=== PATIENT | male | born 1950 | race Caucasian/White ===

== ENCOUNTER 2020-08-20 01:47 | Outpatient (CLI) | payer OTHER, SELFPAY ==
--- NOTE | 2020-08-20 | DI.CT_ITS ---
EXAM: CT CHEST WO CLINICAL HISTORY: SCREENING FOR LUNG CA, FORMER SMOKER, Z87.891 TECHNIQUE: Imaging Protocol: Axial computed tomography images with coronal and sagittal reformatted images were created and reviewed low-dose protocol was performed. COMPARISON: No exams were available for comparison FINDINGS: Tracheobronchial tree: Patent where visualized. Mediastinum and Sirisha: No dominant adenopathy or fluid collection. Pulmonary parenchyma: No consolidation or dominant measurable mass. No visible emphysematous or fibro tic changes. Lung Nodules: 3 millimeter perifissural nodule, adjacent to the right minor fissure. 3 millimeter le ft lower lobe nodule. Pleura: No effusion or pneumothorax. Heart: The heart is not dilated. No coronary artery calcifications are seen. Aorta: Thoracic aorta non-dilated.Minimal calcification. Upper abdomen: Cyst versus hemangioma at the dome of the liver. Additional low-density lesion seen inferiorly in the left lobe. Spleen normal size. Bones: Disc osteophytes Soft Tissues: Unremarkable. IMPRESSION: 3 millimeter right perifissural nodule. 3 millimeter left lower lobe nodule. Lung RADS Cat 2 - Benign Appearance / Behavior: Nodules with a very low likelihood of becoming a clin ically active cancer due to size or lack of growth Lung-RADS 1.0 CATEGORIES: Category 0 - Prior chest CT exam(s) being located for comparison. Category 1 - Annual screening in 12 months. No nodules or definitely benign nodules. Category 2 - Annual screening in 12 months. Benign appearance. Nodules with low likelihood of becomin g active cancer. Category 3 - 6-month follow-up. Probably benign. Short-term follow-up suggested. Nodules with low lik elihood of becoming active cancer. Category 4A - 3-month follow-up and CT/PET if >8 mm in size. Suspicious finding. Findings which requi re additional testing. Category 4B - Findings which require additional testing and tissue sampling. Suspicious finding. C Added to Any of the Above - History of prior lung cancer screening. S Added to Any of the Above - Significant unexpected other finding. RADIATION DOSE DELIVERED: 74.78mGy.cm Total DLP 74.78mGy.cm Total DLP DATA REPOSITORY: All CT scans at this facility are submitted to the National Radiology Data Registry (NRDR) Dose Index Registry (DIR) with the [employer] (ACR). RADIATION OPTIMIZATION: All CT scans at this facility use at least one of these dose optimization te chniques: automated exposure control; mA and/or kV adjustment per patient size (includes targeted exa ms where dose is matched to clinical indication); or iterative reconstruction.
== END 2020-08-20 02:07 ==
PROVIDERS: PCP Physician Assistant Medical; Visit Provider Nurse Practitioner Family
DX: Z87.891 Personal history of nicotine dependence (principal); R91.8 Other nonspecific abnormal finding of lung field
CPT/HCPCS: 71250

== ENCOUNTER 2021-07-19 01:49 | Outpatient (CLI) | payer OTHER, SELFPAY ==
[2021-07-19 10:17] LABS: Source Nasal/Nares
[2021-07-19 12:57] LABS: COVID-19 PCR Negative (Negative)
== END 2021-07-19 01:50 | disposition home or self-care (01) ==
LOC: LBO 01:49
PROVIDERS: PCP Physician Assistant Medical; Visit Provider Ophthalmology
DX: Z20.822 Contact with and (suspected) exposure to COVID-19 (principal); Z01.818 Encounter for other preprocedural examination
CPT/HCPCS: 87635

== ENCOUNTER 2021-07-22 06:23 | Day surgery (SDC) | payer OTHER, SELFPAY ==
[2021-07-22 06:43] VITALS: BP 174/89; PULSE 48; RESP 16; TEMP 36.8; O2SAT 98
[2021-07-22] MEDS: Tropicam./Phenyleph. (1/2.5%) 5 ML BTL OD ×3 (06:54→07:05)
--- NOTE | 2021-07-22 07:03 | W.ANESPRE ---
General Info Date of Service Date Performed: 07/22/21 Height: 6 ft Weight: 102.8 kg Body Mass Index (BMI): 30.7 Surgical Procedure: Operation Date: 07/22/21 07:40 Proposed Procedures Side Surgeon p Cataract Extraction with IOL Implant Right Shyam Barton MD Meds Allergies and Home Medications Allergies Allergy/AdvReac Type Severity Reaction Status Date / Time Alcohol in Cough Medication Allergy Unknown Other (See Uncoded 07/19/21 08:30 Comment) Home Medication Medication Instructions Recorded acetaminophen 325 mg PO ONCE 07/18/21 cholecalciferol (vitamin D3) 25 mcg PO DAILY 07/18/21 [Vitamin D3] docusate sodium 200 mg PO DAILY 07/18/21 esomeprazole magnesium 20 mg PO DAILY 07/18/21 [id number]-icw-[id number]-vitC 1 cap PO DAILY 07/18/21 [Glucosamine Complex-MSM] ibuprofen 400 mg PO ONCE 07/18/21 Current Visit Medications: Current Medications Generic Name Dose Route Start Last Admin Trade Name Freq PRN Reason Stop Dose Admin Acetaminophen 1,000 mg 07/22/21 06:00 Acetaminophen 500 Mg Tab PO Q4H PRN PRN Miscellaneous Medication 0 ml 07/22/21 06:00 Prednisolone 1%, Moxifloxacin 0.5%, Nepafenac 0.1% 5ml Btl OD DIRECTED BRIA Miscellaneous Medication 0 ml 07/22/21 06:00 07/22/21 07:00 Tropicam./Phenyleph. (1/2.5%) 5 Ml Btl OD 1 drp DIRECTED BRIA Administration Tetracaine HCl 0 ml 07/22/21 06:00 Tetracaine 0.5% 4 Ml Btl OD DIRECTED BRIA PFSH Active Problems Active Problems: Problem Status Onset Code Cortical cataract of right eye H26.9 Nuclear sclerotic cataract of right eye H25.11 Medical History Medical History Bilateral cataracts Chest skin lesion Exostosis of both external ear canals GERD (gastroesophageal reflux disease) Hepatitis C Meralgia paresthetica of right side Other chronic pain Primary osteoarthritis Surgical History Surgical History H/O colonoscopy Hx of left knee surgery Tobacco Smoking/Tobacco Use Status: Former Tobacco Use Alcohol Alcohol Intake: never Substance Use Substance use: Never Substance use type: does not use Vital Signs and Lab Results Vital Signs Most Recent Vital Signs in EMR: Most Recent Vital Signs Temp Pulse Resp BP Pulse Ox 36.8 C 48 L 16 174/89 H 98 07/22/21 06:43 07/22/21 06:43 07/22/21 06:43 07/22/21 06:43 07/22/21 06:43 Lab Results Blood Type / Crossmatch: No Data to Display Complete Blood Count: No Data to Display Complete Metabolic Panel: No Data to Display Liver Function Panel: No Data to Display Coagulation Panel: No Data to Display Cardiac Panel: No Data to Display Arterial Blood Gas: No Data to Display Venous Blood Gas: No Data to Display Pancreas Panel: No Data to Display Thyroid Panel: No Data to Display Infectious Disease: Coronavirus (COVID-19)(PCR) Negative (Negative) 07/19/21 08:30 07/19/21 Coronavirus 2019 Source Nasal/Nares 07/19/21 08:30 07/19/21 Blood Cultures: No Data to Display Toxicology Panel: No Data to Display Anesthesia Assessment and Plan Anesthesia History Personal History: No History of Anesthesia Complications Family History: No Family History of Anesthesia Complications Exercise Tolerance Exercise Tolerance: Metabolic Equivalents>4 Pertinent Negatives Pertinent Negatives: No Symptoms of GERD, No Major Cardiovascular Symptoms or Complaints, No Major Pulmonary Symptoms or Complaints and No History of CVA/TIA Cardiac & Pulmonary Exam Cardiac Exam: Normal S1/S2 Heart Sounds Pulmonary Exam: Clear Bilateral Breath Sounds Airway Exam Known Difficult Airway: No Mallampati Class: 2 Mouth Opening: Normal (> 3cm) Thyromental Distance: Greater than 3 cm Neck Range of Motion: Full ROM Neck Circumference: Normal Teeth Condition: Normal Dentition ASA Classification ASA Score: ASA 2 Emergency Case?: No NPO Status NPO Status: NPO Clears >2 hours, Solids >8 hours Anesthesia Plan Resuscitation Status: Full Code Anesthesia Technique: MAC Anesthesia Airway Planned: Natural Airway Monitors Used: Standard Monitors
[2021-07-22] MEDS: Tetracaine 0.5% 4 ML BTL OD (07:27)
[2021-07-22] MEDS: Povidone-Iodine Ophth 30 ML BTL (07:28)
[2021-07-22] MEDS: Lidocaine 2% Jelly 6 ML SYR (07:28)
[2021-07-22 07:31] VITALS: BMI 30.7
[2021-07-22] MEDS: Balanced Salt Soln.-PLUS 500 ML BAG (07:35)
[2021-07-22] MEDS: Lidocaine 1% Pres-Free 5 ML VIAL (07:36)
[2021-07-22] MEDS: Duovisc Viscoelastic System EACH 1 EACH (07:37)
--- NOTE | 2021-07-22 07:52 | W.ANESPOSTOP ---
Postoperative Evaluation Date, Time and Location Date Performed: 07/22/21 Time Performed: 07:56 Patient Location: Day Surgery Unit Vital Signs Most Recent Imported Vital Signs: Temp Pulse Resp BP Pulse Ox 37 C 51 L 16 161/81 H 99 07/22/21 07:56 07/22/21 07:56 07/22/21 07:56 07/22/21 07:56 07/22/21 07:56 Pain Score Most Recent Pain Score: Most Recent Pain Score Pain Level 0 07/22/21 06:43 Assessment Mental Status: Awake (Alert & Oriented to Patient Baseline) Airway and Respiratory Function: Patent airway with normal (patient baseline) respiratory exam Cardiovascular Function: Hemodynamically Stable Hydration Status: Adequately Hydrated Nausea & Vomiting: No Nausea or Vomiting Pain: Pt. Denies Any Pain Peripheral Nerve Block: Other (Local by Dr. Barton)
[2021-07-22 07:56] VITALS: BP 161/81; PULSE 51; RESP 16; TEMP 37; O2SAT 99
--- NOTE | 2021-07-22 07:57 | ROE_ITS ---
Date of service: 07/22/21 Time of Service: 07:57 Operative Note Operative Note DATE OF PROCEDURE: 07/22/21 PRE-OP DIAGNOSIS: Nuclear/cortical cataract, right eye POST-OP DIAGNOSIS: same PROCEDURE: Cataract extraction using phacoemulsification with intraocular lens implant, right eye SURGEON: Shyam Barton ANESTHESIA TYPE: Local By Surgeon and MAC Refer to Anesthesia Record ESTIMATED BLOOD LOSS: 0 PATHOLOGY: none sent COMPLICATIONS: None Patient was transported to: same day Patient's condition: stable Implants: Prudencio & Prudencio/SADAF Tecnis [id number] Indications: Progressive visual loss due to cataract, right eye Procedure Description: CATARACT SURGERY OPERATIVE REPORT PREOPERATIVE DIAGNOSIS: 1. Nuclear/cortical cataract, right eye POSTOPERATIVE DIAGNOSIS: Same OPERATION: 1. Cataract extraction using phacoemulsification with posterior chamber intraocular lens implant, right eye. IOL: IOL Tool Polishing Machine Operator/Model: Prudencio & Prudencio / SADAF Tecnis [id number] IOL Power: + 21.0 diopters IOL Serial Number: [id number] Optic Diameter: 6.0mm Haptic/Overall Diameter: 13.0mm PHACO INFO: Zachary eSentireurion Vision System with OZil and Active Fluidics Cumulative Dispersed Energy (CDE): 5.43 seconds SURGEON: Shyam Barton MD, JOSH ANESTHESIA: Monitored Anesthesia Care (MAC), with local sub-tenon's anesthetic infiltration COMPLICATIONS: None SPECIMENS: None INDICATIONS FOR PROCEDURE: The patient is a 71-year-old gentleman with history of diminished visual acuity in his right eye secondary to the development of nuclear and cortical cataract. He is currently a long-term contact lens wear. Cataract surgery is undertaken in attempt to improve and maximize his vision. The option of cataract surgery was offered to the patient and he wished to proceed. PROCEDURE: The correct surgical eye was identified and marked as the right eye and the pupil was dilated in the preoperative area using mydriatics and cycloplegics. The dilated pupil size was 6.0 mm. He elected to proceed without oral sedation. The patient was brought to the operating room where cardiopulmonary monitoring was instituted and surgical time-out was performed, confirming the correct operative eye and IOL power. Topical anesthesia was administered and ophthalmic povidone-iodine 5% was instilled into the conjunctival fornices. Lidocaine gel was applied to the cornea and the melvin-ocular area was prepped with Betadine 10% solution and draped in the usual sterile fashion for intraocular surgery, including an aperture drape. A Tegaderm transparent film dressing was cut in half and used to cover the lashes and lid margins. Care was taken to sequester the lashes and lid margins under the Tegaderm dressing. A lid speculum was placed between the lids of the operative eye and the Emmy-Cassia operating microscope was maneuvered into position. Chuck scissors were then used to make a conjunctival buttonhole approximately 6mm posterior to the limbus in the inferonasal quadrant. Blunt dissection was carried out to expose bare sclera, and a blunt-tipped sub-tenon?s anesthesia cannula was introduced and passed posteriorly along the globe where non- preserved plain lidocaine was injected into posterior sub-Tenon?s space. A sideport knife was used to make a paracentesis port inferotemporally. Intraocular phenylephrine/lidocaine was injected into the anterior chamber. The anterior chamber was filled with viscoelastic. A 2.4mm keratome knife was used to create a half-thickness groove at the limbus and then to construct a three- plane near-clear corneal tunnel extending 2.0mm into clear cornea superiortemporally. A flap was raised on the anterior capsule and capsulorhexis forceps were used to complete a continuous curvilinear capsulorhexis of 5.0 mm. Balanced salt solution was then used to perform cortical cleaving hydrodissec tion and nuclear hydrodelineation until the lens could be freely rotated within the capsular bag. The lens nucleus was then disassembled and removed within the capsular bag and iris plane using phacoemulsification. Residual cortical material was removed using the I/A handpiece. The posterior capsule was carefully polished to remove as much residual lens epithelial cells as safely possible. The capsular bag was then inflated and the anterior chamber deepened with viscoelastic. The lens implant described above was inserted into the capsular bag using the SADAF [place] Injector. A Kuglen hook was used to dial the IOL into position. Residual viscoelastic was then removed first from posterior to the IOL, then from the anterior chamber using the I/A handpiece. The lens implant was noted to center nicely within the capsular bag. The incisions were stromally hydrated, and the anterior chamber was reformed using BSS. Then 0.5cc of moxifloxacin 1.0mg/ml were injected into the capsular bag and anterior chamber. The incisions were checked with a Weck spear and found to be secure. Several drops of ophthalmic povidone-iodine 5% were then applied to the eye followed by two drops of Imprimis combination prednisolone/moxifloxacin/nepafenac solution. The drapes were removed and a clear plastic protective eye shield was placed over the eye. The patient was then returned to Same Day Surgery in stable condition.
--- NOTE | 2021-07-22 07:57 | W.PM.DSUDISC ---
Discharge Plan Disposition Patient Disposition: HOME Condition: Good Discharge Details Attending Provider: Shyam Barton Primary Care Provider: Maryanne Johnson Home Meds and New Rx's Prescriptions: No Action acetaminophen 325 mg Tablet 325 mg PO ONCE RF: 0 ibuprofen 400 mg Tablet 400 mg PO ONCE RF: 0 docusate sodium 100 mg Tablet 200 mg PO DAILY RF: 0 Glucosamine Complex-MSM Capsule 1 cap PO DAILY RF: 0 cholecalciferol (vitamin D3) [Vitamin D3] 25 mcg (1,000 unit) Tablet 25 mcg PO DAILY RF: 0 esomeprazole magnesium 20 mg Tablet,Delayed Release (Dr/Ec) 20 mg PO DAILY RF: 0 Discharge Instructions Stand Alone Forms: Post-op Topical Cataract, Rebeca Yoo ([facility]U) Discharge Orders Discharge Orders: Discharge Order (Routine); Ordered 07/22/21 Ordered By: Shyam Barton DS: Diagnosis Discharge Diagnosis (1) Cortical cataract of right eye: Status: Resolved (2) Nuclear sclerotic cataract of right eye: Status: Resolved
== END 2021-07-22 08:17 | disposition home or self-care (01) ==
PROVIDERS: PCP Physician Assistant Medical; Visit Provider Ophthalmology
PROC: (CPT 66984; principal; 2021-07-22 07:30)
DX: H25.11 Age-related nuclear cataract, right eye (principal); B19.20 Unspecified viral hepatitis C without hepatic coma; K21.9 Gastro-esophageal reflux disease without esophagitis; G89.29 Other chronic pain
CPT/HCPCS: 66984; V2632

== ENCOUNTER 2021-08-02 03:10 | Outpatient (CLI) | payer OTHER, SELFPAY ==
[2021-08-02 10:51] LABS: Source Nasal/Nares
[2021-08-02 20:16] LABS: COVID-19 PCR Negative (Negative)
== END 2021-08-02 03:11 | disposition home or self-care (01) ==
LOC: LBO 03:11
PROVIDERS: PCP Physician Assistant Medical; Visit Provider Ophthalmology
DX: Z20.822 Contact with and (suspected) exposure to COVID-19 (principal); Z01.818 Encounter for other preprocedural examination
CPT/HCPCS: 87635

== ENCOUNTER 2021-08-05 06:21 | Day surgery (SDC) | payer OTHER, SELFPAY ==
--- NOTE | 2021-08-05 06:05 | ANES.PREOP_ITS ---
General Info Date of Service Date Performed: 08/05/21 Height: 6 ft Weight: 104 kg Body Mass Index (BMI): 31.1 Surgical Procedure: Operation Date: 08/05/21 07:40 Proposed Procedures Side Surgeon p Cataract Extraction with IOL Implant Left Shyam Barton MD Meds Allergies and Home Medications Allergies Allergy/AdvReac Type Severity Reaction Status Date / Time Alcohol in Cough Medication Allergy Unknown Other (See Uncoded 08/02/21 14:55 Comment) Home Medication Medication Instructions Recorded acetaminophen 325 mg PO DAILY 07/18/21 cholecalciferol (vitamin D3) 25 mcg PO DAILY 07/18/21 [Vitamin D3] docusate sodium 200 mg PO DAILY 07/18/21 esomeprazole magnesium 20 mg PO DAILY 07/18/21 qdpwhxuttxu-qhv-fwknhmjab-vitC 1 cap PO DAILY 07/18/21 [Glucosamine Complex-MSM] ibuprofen 400 mg PO DAILY 07/18/21 Current Visit Medications: Current Medications Generic Name Dose Route Start Last Admin Trade Name Freq PRN Reason Stop Dose Admin Acetaminophen 1,000 mg 08/05/21 06:00 Acetaminophen 500 Mg Tab PO Q4H PRN PRN Miscellaneous Medication 0 ml 08/05/21 06:00 Prednisolone 1%, Moxifloxacin 0.5%, Nepafenac 0.1% 5ml Btl OS DIRECTED [facility] Miscellaneous Medication 0 ml 08/05/21 06:00 Tropicam./Phenyleph. (1/2.5%) 5 Ml Btl OS DIRECTED BRIA Tetracaine HCl 0 ml 08/05/21 06:00 Tetracaine 0.5% 4 Ml Btl OS DIRECTED BRIA PFSH Active Problems Active Problems: Problem Status Onset Code Cortical cataract of left eye H26.9 Nuclear sclerotic cataract of left eye H25.12 Cortical cataract of right eye H26.9 Nuclear sclerotic cataract of right eye H25.11 Medical History Medical History Bilateral cataracts Chest skin lesion Exostosis of both external ear canals GERD (gastroesophageal reflux disease) Hepatitis C Meralgia paresthetica of right side Other chronic pain Primary osteoarthritis Surgical History Surgical History (Updated 08/05/21 @ 06:38 by Caren Chandra) H/O colonoscopy Hx of cataract extraction Hx of left knee surgery Tobacco Smoking/Tobacco Use Status: Former Tobacco Use Alcohol Alcohol Intake: never Substance Use Substance use: Never Substance use type: does not use Vital Signs and Lab Results Vital Signs Most Recent Vital Signs in EMR: Temp Pulse Resp BP Pulse Ox 36.6 C 47 L 16 162/87 H 99 08/05/21 06:48 08/05/21 06:48 08/05/21 06:48 08/05/21 06:48 08/05/21 06:48 Lab Results Blood Type / Crossmatch: No Data to Display Complete Blood Count: No Data to Display Complete Metabolic Panel: No Data to Display Liver Function Panel: No Data to Display Coagulation Panel: No Data to Display Cardiac Panel: No Data to Display Arterial Blood Gas: No Data to Display Venous Blood Gas: No Data to Display Pancreas Panel: No Data to Display Thyroid Panel: No Data to Display Infectious Disease: Coronavirus (COVID-19)(PCR) Negative (Negative) 08/02/21 08:36 08/02/21 Coronavirus 2019 Source Nasal/Nares 08/02/21 08:36 08/02/21 Blood Cultures: No Data to Display Toxicology Panel: No Data to Display Anesthesia Assessment and Plan Anesthesia History Personal History: No History of Anesthesia Complications Family History: No Family History of Anesthesia Complications Exercise Tolerance Exercise Tolerance: Metabolic Equivalents>4 Cardiac & Pulmonary Exam Cardiac Exam: Normal S1/S2 Heart Sounds Pulmonary Exam: Clear Bilateral Breath Sounds Implantable Cardiac Device Does patient have a Pacemaker or an ICD?: No Airway Exam Known Difficult Airway: No Mallampati Class: 2 Mouth Opening: Normal (> 3cm) Thyromental Distance: Greater than 3 cm Neck Range of Motion: Full ROM Neck Circumference: Normal Teeth Condition: Normal Dentition ASA Classification ASA Score: ASA 2 Emergency Case?: No NPO Status NPO Status: NPO Clears >2 hours, Solids >8 hours Anesthesia Plan Resuscitation Status: Full Code Anesthesia Technique: MAC Anesthesia Airway Planned: Natural Airway Monitors Used: Standard Monitors Preoperative Comments:: 71 yo male for cataract. Previous cataract no MKO. Denies any health history change.
[2021-08-05 06:48] VITALS: BP 162/87; PULSE 47; RESP 16; TEMP 36.6; O2SAT 99
[2021-08-05] MEDS: Tropicam./Phenyleph. (1/2.5%) 5 ML BTL OS ×3 (06:48→07:00)
[2021-08-05 07:10] VITALS: BMI 31.1
[2021-08-05] MEDS: Tetracaine 0.5% 4 ML BTL OS (07:19)
[2021-08-05] MEDS: Povidone-Iodine Ophth 30 ML BTL (07:20)
[2021-08-05] MEDS: Duovisc Viscoelastic System EACH 1 EACH (07:27)
[2021-08-05] MEDS: Balanced Salt Soln.-PLUS 500 ML BAG (07:27)
[2021-08-05] MEDS: Lidocaine 1% Pres-Free 5 ML VIAL (07:28)
[2021-08-05] MEDS: Lidocaine 2% Jelly 6 ML SYR (07:29)
--- NOTE | 2021-08-05 07:51 | W.PM.DSUDISC ---
Discharge Plan Disposition Patient Disposition: HOME Condition: Good Discharge Details Attending Provider: Shyam Barton Primary Care Provider: Maryanne Johnson Home Meds and New Rx's Prescriptions: No Action acetaminophen 325 mg Tablet 325 mg PO DAILY RF: 0 ibuprofen 400 mg Tablet 400 mg PO DAILY RF: 0 docusate sodium 100 mg Tablet 200 mg PO DAILY RF: 0 Glucosamine Complex-MSM Capsule 1 cap PO DAILY RF: 0 cholecalciferol (vitamin D3) [Vitamin D3] 25 mcg (1,000 unit) Tablet 25 mcg PO DAILY RF: 0 esomeprazole magnesium 20 mg Tablet,Delayed Release (Dr/Ec) 20 mg PO DAILY RF: 0 Discharge Instructions Stand Alone Forms: Post-op Topical Cataract, Rebeca Yoo ([facility]) Discharge Orders Discharge Orders: Discharge Order (Routine); Ordered 08/05/21 Ordered By: Shyam Barton DS: Diagnosis Discharge Diagnosis (1) Nuclear sclerotic cataract of left eye: Status: Resolved (2) Cortical cataract of left eye: Status: Resolved
--- NOTE | 2021-08-05 07:52 | W.PM.OP ---
Date of service: 08/05/21 Time of Service: 07:52 Operative Note Operative Note DATE OF PROCEDURE: 08/05/21 PRE-OP DIAGNOSIS: Nuclear/cortical cataract, left eye POST-OP DIAGNOSIS: same PROCEDURE: Cataract extraction using phacoemulsification with intraocular lens implant, left eye SURGEON: Shyam Barton ANESTHESIA TYPE: Local By Surgeon and MAC Refer to Anesthesia Record PATHOLOGY: none sent COMPLICATIONS: None Patient was transported to: same day Patient's condition: stable Implants: Prudencio and Prudencio / [employer] Tecnis [id number] Indications: Progressive decreased vision due to cataract, left eye Procedure Description: CATARACT SURGERY OPERATIVE REPORT PREOPERATIVE DIAGNOSIS: 1. Nuclear/cortical cataract, left eye POSTOPERATIVE DIAGNOSIS: Same OPERATION: 1. Cataract extraction using phacoemulsification with posterior chamber intraocular lens implant, left eye. IOL: IOL Marketing Representative/Model: Prudencio & Prudencio / SAADF Tecnis [id number] IOL Power: + 21.5 diopters IOL Serial Number: [id number] Optic Diameter: 6.0 mm Haptic/Overall Diameter: 13.0 mm PHACO INFO: ZacharyFreebaseurion Vision System with OZil and Active Fluidics Cumulative Dispersed Energy (CDE): 7.32 seconds SURGEON: Shyam Barton MD, JOSH ANESTHESIA: Monitored A [facility] (MAC), with local sub-tenon's anesthetic infiltration COMPLICATIONS: None SPECIMENS: None INDICATIONS FOR PROCEDURE: The patient is a 71-year-old male with history of diminished visual acuity in both eyes secondary to the development of bilateral nuclear and cortical cataract. He has already undergone cataract surgery and his right eye and is doing well postoperatively. He now presents for cataract surgery in the left eye. PROCEDURE: The correct surgical eye was identified and marked as the left eye and the pupil was dilated in the preoperative area using mydriatics and cycloplegics. The dilated pupil size was 7.0 mm. He elected to proceed without oral sedation. The patient was brought to the operating room where cardiopulmonary monitoring was instituted and surgical time-out was performed, confirming the correct operative eye and IOL power. Topical anesthesia was administered and ophthalmic povidone-iodine 5% was instilled into the conjunctival fornices. Lidocaine gel was applied to the cornea and the melvin-ocular area was prepped with Betadine 10% solution and draped in the usual sterile fashion for intraocular surgery, including an aperture drape. A Tegaderm transparent film dressing was cut in half and used to cover the lashes and lid margins. Care was taken to sequester the lashes and lid margins under the Tegaderm dressing. A lid speculum was placed between the lids of the operative eye and the Emmy-Cassia operating microscope was maneuvered into position. Chuck scissors were then used to make a conjunctival buttonhole approximately 6mm posterior to the limbus in the inferonasal quadrant. Blunt dissection was carried out to expose bare sclera, and a blunt-tipped sub-tenon?s anesthesia cannula was introduced and passed posteriorly along the globe where non-preserved plain lidocaine was injected into posterior sub-Tenon?s space. A sideport knife was used to make a paracentesis port superiorly/superiortemporally. Intraocular phenylephrine/lidocaine was injected int the anterior chamber.. The anterior chamber was filled with viscoelastic. A 2.4mm keratome knife was used to create a half-thickness groove at the limbus and then to construct a three-plane near-clear corneal tunnel extending 2.0mm into clear cornea at the 3:00 position. A flap was raised on the anterior capsule and capsulorhexis forceps were used to complete a continuous curvilinear capsulorhexis of 5.5 mm. Balanced salt solution was then used to perform cortical cleaving hydrodissection and nuclear hydrodelineation until the lens could be freely rotated within the capsular bag. The lens nucleus was then disassembled and removed within the capsular bag and iris plane using phacoemulsification. Residual cortical material was removed using the 45-degree angled silicone I/A tip with 0.3mm port. The posterior capsule was carefully polished to remove as much residual lens epithelial cells as safely possible. The capsular bag was then inflated and the anterior chamber deepened with viscoelastic. The lens implant described above was inserted into the capsular bag using the SAADF [place] Injector. A Kuglen hook was used to dial the IOL into position. Residual viscoelastic was then removed first from posterior to the IOL, then from the anterior chamber using the I/A handpiece. The lens implant was noted to center nicely within the capsular bag. The incisions were stromally hydrated, and the anterior chamber was reformed using BSS. Then 0.5cc of moxifloxacin 1.0mg/ml were injected into the capsular bag and anterior chamber. The incisions were checked with a Weck spear and found to be secure. Several drops of ophthalmic povidone-iodine 5% were then applied to the eye followed by two drops of Imprimis combination prednisolone/moxifloxacin/nepafenac solution. The drapes were removed and a clear plastic protective eye shield was placed over the eye. The patient was then returned to Same Day Surgery in stable condition.
[2021-08-05 07:55] VITALS: BP 161/86; PULSE 48; RESP 16; TEMP 36.5; O2SAT 98
--- NOTE | 2021-08-05 07:58 | W.ANESPOSTOP ---
Postoperative Evaluation Date, Time and Location Date Performed: 08/05/21 Time Performed: 07:58 Patient Location: Day Surgery Unit Vital Signs Most Recent Imported Vital Signs: Most Recent Vital Signs Temp Pulse Resp BP Pulse Ox 36.5 C 48 L 16 161/86 H 98 08/05/21 07:55 08/05/21 07:55 08/05/21 07:55 08/05/21 07:55 08/05/21 07:55 Pain Score Most Recent Pain Score: Most Recent Pain Score Pain Level 0 08/05/21 07:55 Assessment Mental Status: Awake (Alert & Oriented to Patient Baseline) Airway and Respiratory Function: Patent airway with normal (patient baseline) respiratory exam Cardiovascular Function: Hemodynamically Stable Hydration Status: Adequately Hydrated Nausea & Vomiting: No Nausea or Vomiting Pain: Pt. Denies Any Pain Peripheral Nerve Block: Patient did not receive a nerve block
== END 2021-08-05 08:07 | disposition home or self-care (01) ==
PROVIDERS: PCP Physician Assistant Medical; Visit Provider Ophthalmology
PROC: (CPT 66984; principal; 2021-08-05 07:30)
DX: H25.12 Age-related nuclear cataract, left eye (principal); G57.11 Meralgia paresthetica, right lower limb; K21.9 Gastro-esophageal reflux disease without esophagitis
CPT/HCPCS: 66984; V2632